=== PATIENT | female | born 1990 | race Caucasian/White ===

== ENCOUNTER 2020-04-24 16:29 | Inpatient (IN) | payer OTHER ==
[~2020-04-24] VITALS: Ht 167.6 cm; Wt 64.1 kg
--- NOTE | 2020-04-24 19:57 | NUR ---
HANDOFF REPORT RECEIVED FROM BLASTING ENTRY SPECIALIST SARWAT. pt TO GO TO SURGERY FROM ER.
--- NOTE | 2020-04-24 22:48 | NUR ---
04/24/208 Almodovar,Maral Weber 213: PATIENT AWAKENING. ORAL AIRWAY SPIT OUT. 2135: O2 MASK REMOVED. PATIENT ON ROOM AIR. PATIENT EMOTIONAL. ALSO C/O PAIN IN THROAT AND RIGHT BUTTOCK. 2139: IMAGING HERE TO COMPLETE CHEST XRAY FOR CENTRAL LINE PLACEMENT. 2144: CENTRAL LINE PLACEMENT CONFIRMED BY DR. DA SILVA.
--- NOTE | 2020-04-24 22:53 | NUR ---
4MG IV MORPHINE GIVEN FOR RIGHT BUTTOCK PAIN 08/20. CALL LIGHT IN REACH.
--- NOTE | 2020-04-24 23:07 | NUR ---
pt ARRIVES TO [facility] FLOOR AT 2210 VIA [employer] WITH [employer]. ABLE TO TRANSFER SELF TO HOSPITAL BED. ORIENTATION TO ROOM PROVIDED. PRIMARY RN SHU IN ROOM. pt EMOTIONAL DISCUSSING CURRENT AND FORMER DRUG USE. DENIES NEED FOR ASSISTANCE WITH CESSATION, STATES HAS BEEN IN INPATIENT REHAB AND OUTPATIENT TREATMENT "I'M JUST LAZY AND NEED TO DO IT AGAIN". CALL LIGHT IN REACH. IVF INFUSING CENTRAL LINE ORDERED.
--- NOTE | 2020-04-24 23:15 | NUR ---
PATIENT REQUESTED FOOD AFTER SURGEY. PROVIDED WITH ICE CREAM, PB&J SANDWICH, AND CHIPS.
--- NOTE | 2020-04-24 23:22 | NUR ---
PATIENT'S PAIN HAS INCREASED AND 4MG IV MS GIVEN AND 10MG OXYCODONE PO GIVEN. PATIENT'S DRESSING WAS CHANGED THE 1ST ONE HAD FALLEN OFF. CALL LIGHT IS IN REACH.
--- NOTE | 2020-04-25 00:09 | NUR ---
PATIENT CALLED TO USE BATHROOM. SBA TO BATHROOM. UA COLLECTED VIA CLEAN CATCH. BACK TO BED. FRESH GOWN PROVIDED. PATIENT WAS STEADY WHEN AMBULATING. UA SENT TO LAB. CALL LIGHT IN REACH. PATIENT DENIES ANY FURTHER NEEDS AT THIS TIME.
--- NOTE | 2020-04-25 01:03 | NUR ---
PATIENT UP TO THE BATHROOM AGAIN WITH DANILO MCDONNELL AND BACK TO BED. PATIENT'S PAIN 3/10 AT THIS TIME. CALL LIGHT IS IN REACH.
--- NOTE | 2020-04-25 01:03 | NUR ---
PATIENT CALLED LINING STUFFER SYSTEM TO USE BATHROOM. SBA TO BATHROOM. PATIENT HAS NO PROBLEM WALKING BY HERSELF TO BATHROOM. PULSE OX IV POLE PLUGGED IN WHEN PATIENT RETURENED TO BED. PATIENT COMPLAINS OF DRIN FELLING LIKE IT IS "POKING" HER. KIEL IRELAND NOTIFIED. CALL LIGHT IN REACH. PATIENT DENIES ANY FURTHER NEEDS AT THIS TIME.
--- NOTE | 2020-04-25 01:27 | NUR ---
PATIENT REMAINS AWAKE AND COMFORTABLE AT THIS TIME, WATHING TV, CALL LIGHT IS IN REACH.
--- NOTE | 2020-04-25 03:27 | NUR ---
PATIENT RESTING QUIETLY, EYES CLOSED, RESPIRATIONS REGULAR AND EVEN, SATS 94% AND HR=92, CALL LIGHT IN REACH.
--- NOTE | 2020-04-25 05:10 | NUR ---
PATIENT HAS GOTTEN A TOTAL OF 8MG IV MS AND 10MG PO OXYCODONE THIS SHIFT TO CONTROL HER PAIN, PATIENT RESTED WELL AFTER THESE MEDS AND CONTINUES TO BE COMFORTABLE AT THIS TIME. CENTRAL PORTS FLUSHED WITH 20MLS/NS AND 5MLS/HEP LOCK SOLUTION. RIGHT GLUTEAL DRESSING HAD TO BE CHANGED ONCE RIGHT AFTER ARRIVING TO THE FLOOR IT CAME OFF, SANGUINOUS DRAINAGE NOTED. PATIENT RESTING AT THIS TIME, BLOOD PRESSURE REMAINS A LITTLE SOFT, CALL LIGHT IS IN REACH.
--- NOTE | 2020-04-25 06:35 | NUR ---
PATIENT CALLED TO USE THE RESTROOM. SBA. CHANGED BLANKETS AND PILLOW CASE DUE TO BLOOD STAINS. WHITE CHUCKS ON. WARM BLANKET PROVIDED.
--- NOTE | 2020-04-25 07:10 | NUR ---
REPORT RECEIVED FROM KIEL IRELAND. PT RESTING IN BED ON LEFT SIDE WITH EYES CLOSED. PT RESPONDS TO VOICE. PT DENIES PAIN AND NAUSEA. O2 SATURATION AT 97% WITH HEART RATE OF 82. PT DENIES REQEUSTS OR COMPLAINTS AT THIS TIME. CALL LIGHT WITHIN REACH.
--- NOTE | 2020-04-25 09:18 | NUR ---
PATIENT RESTING WITH EYES CLOSED. RESPONDS TO VOICE. VITALS AND I&OS CHARTED. BREAKFAST AT BEDSIDE, PATIENT AWARE. CALL LIGHT IN REACH, MO OTHER NEEDS AT THIS TIME,
--- NOTE | 2020-04-25 09:45 | NUR ---
MORNING ASSESSMENT AND MEDICATION DUE. PT RESTING ON LEFT SIDE. PT RESPONDS TO VOICE. PT REPORTS 4/10 BURNING PAIN IN RIGHT GLUTEAL AREA. PT REQUESTS PAIN MEDICATION (SEE MAR FOR MEDICATION GIVEN. IJ LINE ASSESSED, WNL, BRISK BLOOD REUTRN NOTED IN ALL THREE LUMENS. WHITE AND BLUE LUMENS FLUSHED AND HEPARIN LOCKED PERPROTOCOL WITH ALCOHOL CAPS APPLIED. BROWN LINE INFUSING IV ABX SEE MAR). DRESSING AROUND IJ LINE NOT INTACT. STERILE DRESSING CHANGE DONE PER PROTOCOL. ASSESSMENT DONE. DRESSING TO RIGHT GULTEAL SURGICAL SITE SATURATED IN SERIOUSANGUINOUS RED DRAINAGE. ABD CHANGED. WOUND BED AND CONSITON NOT ASSESSED RELATED TO SURGICAL DRESSING IN PLACE. SCD'S NOT IN PLACE, PT REFUSES, EDUCATION DONE. PT CONTINUES TO DECLINE. IV TO RIGHT UPPER SHOULDER REMOVED, NOT NEEDED, DC'D WNL. GAUZE AND TAP APPLIED. PT CALM AND COOPERATIVE WITH CARES. STAND BY ASSIST UP TO VOID. PT VOIDS 600 CLEAR YELLOW URINE. STAND BY ASSIST. RETURN TO RESTING IN BED. NO ADDITIONAL REQUESTS OR COMPLAINTS. CALL LIGHT WITHIN REACH. BED RAILS UP.
--- NOTE | 2020-04-25 10:49 | NUR ---
THIS RN TO ROOM TO CHECK ON PT. PT RESTING ON LEFT SIDE IN BED WITH EYES CLOSED. PT RESPONDS TO VOICE AND REPORTS PAIN AT 3/10, PT DENIES NEED FOR ADDITIONAL PAIN MEDICATION. PT ENCORUAGED TO SPEND TIME UP TO CHAIR. PT DECLINES AT THIS TIME. PT CONTINUES TO BE MIDLY DIAPHROETIC. IV ABX INFUSION COMPLETE. IV FLUIDS RESUMED (SEE EMAR). NO ADDITIONAL REQUESTS OR COMPLAINTS. CALL LIGHT WITHIN REACH. BED RAILS UP.
--- NOTE | 2020-04-25 10:57 | NUR ---
IN TO CHAECK ON PATIENT, STILL RESTING WITH EYES CLOSED. ROUSED TO VOICE. WOULD LIKE TO KEEP BREAKFAST AT BEDSIDE. FRESH ICE WATER PROVIDED. CALL LIGHT IN REACH
--- NOTE | 2020-04-25 12:50 | NUR ---
THIS RN TO ROOM WITH DR. DA SILVA FOR DRESSING CHANGE AND ROUNDS. MD REMOVES DRESSING AND PACKED GAUZE IN WOUND. NEW SUPRFICIAL GAUZE AND ABD PAD PLACED PER MD ORDER. PT REPORTS 5-6/10 PAIN AT SURGICAL SITE, DR. DA SILVA STATES OK TO GIVE PAIN MEDICATION EARLY. PT REPORTS HER BOYFRIEND IS COMING NOW. CHARGE NURSE UPDATED REGARDING WATCHING FOR ITEMS BROUGHT AND GIVEN TO PT. PT VERBALIZES UNDERSTANDING THAT IT IS VERY DANGEROUS TO USE IV DRUGS. NO ADDITIONAL REQUESTS OR COMPLAINTS. CALL LIGHT BringrsIN REACH. BED RAILS UP.
--- NOTE | 2020-04-25 13:07 | OR ---
[facility] [address] [place], [place] [address] Signed DATE OF OPERATION: 04/24/2020 SURGEON: Erinn Da Silva MD PREOPERATIVE DIAGNOSES: 1. Giant right gluteal abscess. 2. Intravenous drug use heroin. 3. Poor peripheral access. POSTOPERATIVE DIAGNOSES: 1. Giant right gluteal abscess. 2. Intravenous drug use heroin. 3. Poor peripheral access. PROCEDURES: 1. Exam under anesthesia. 2. Right ultrasound-guided internal jugular central venous catheter placement. 3. Right giant gluteal abscess drainage with debridement. 4. Placement of yellow vessel loop drains x2. ANESTHESIA: General LMA Jeff Garcia CRNA INDICATIONS: This 29-year-old white woman lives in [place] and presented to the emergency room where she was evaluated by Dr. Venegas for marked cellulitis of the right gluteal area and obvious large abscess. She has associated right inguinal adenopathy. The patient has a habit of intramuscular and subcutaneous injection of heroin on a routine basis as most of her peripheral IV sites have withered away. She has been given antibiotic of ceftriaxone and vancomycin, some amount of fluid through a tenuous IV in the right deltoid area and is now to undergo placement of central venous catheter as well as drainage of a right gluteal abscess. The risks of bleeding, infection, recurrence, and other unforeseen complications was reviewed and understand by the patient and her boyfriend. FINDINGS: Ultrasound guidance allowed for easy placement of right internal jugular venous catheter. Good function was noted. The deltoid IV was removed on that basis. As regards to the right gluteal abscess, she had extensive cellulitis and a very large Electronically Signed By: ERINN DA SILVA MD 04/25/20 1307 PATIENT NAME: MILENA SINGH OPERATIVE REPORT DATE OF : 88 REPORT #: [id number] PHYSICIAN: ERINN DA SILVA MD PCP: NO PRIMARY CARE PHYSICIAN REPORT IS CONFIDENTIAL AND NOT TO BE RELEASED WITHOUT AUTHORIZATION [facility] [address] [place], [place] [address] Signed abscess cavity at least as large as my fully opened hand and some necrotic debris within the cavity. Two counter incisions were made allowing for placement of yellow vessel loop drains. Complete drainage and debridement of the abscess cavity was undertaken as well as irrigation. There were no complications. DESCRIPTION OF PROCEDURE: The patient was brought to the operating room and given a general LMA type anesthetic with use of the small peripheral deltoid vein IV and the usual measures. The right neck and upper torso were prepared with a chlorhexidine solution and draped sterilely. Below the anterior crossing vein of the right sternocleidomastoid muscle, ultrasound probe was applied to the neck showing good demonstration of the internal jugular vein as well as carotid anatomy. Under direct visualization, using the Seldinger technique, the right internal jugular vein was easily accessed showing dark nonpulsatile blood. Notably, the usual protocol including sterile gloves, gown, and mask and so forth were avoided during the course of the procedure. Access to the vein showed dark nonpulsatile blood and a flexible J-wire was passed down the needle. The needle was removed. A photograph was taken during the course of finding the jugular vein with the ultrasound. The site was incised with an #11 blade. Dilated with enclosed blue dilator and a previously inspected and irrigated Arrow Blue Tip triple-lumen catheter passed over the wire. The wire was removed and aspiration on the distal port showed dark nonpulsatile blood. was applied to that site and flushed. The catheter was withdrawn several cm given her body habitus and secured to the skin with the enclosed collar device and suture. An anti-infective disk was applied as was an OpSite dressing. The deltoid access was removed and the IV fluids to the central venous catheter. The patient was then placed in the lateral position left side down. Photographs were taken. The right buttock and so forth was prepared with a chlorhexidine solution and draped sterilely. An area of fluctuance in the mid to posterior aspect of the large infective process was incised with an #11 blade and egress of copious amounts of brown and foul appearing purulent material exuded under pressure from the site. Copious amounts were noted to drain. Ultimately, a tonsil clamp was placed in the space of the abscess cavity and loculations broken down and apparently the necrotic fatty material removed. A counter incision was made more anteriorly and the yellow vessel loop passed through this site and tied in a loop. Inferiorly, there was a similar space. This was debrided with the clamp and a counter incision made there and another yellow vessel loop passed and tied. Copious irrigation of the cavity was then undertaken with bulb printing press operator apprentice using sterile saline solution. Plain gauze was packed into the wound site and each site to help oozing. An ABD pad was applied as was tape. She was returned to the supine position ultimately extubated and transferred to the recovery room in good condition. BLOOD LOSS: Electronically Signed By: ERINN DA SILVA MD 04/25/20 1307 PATIENT NAME: MILENA SINGH OPERATIVE REPORT DATE OF : 88 REPORT #: [id number] PHYSICIAN: ERINN DA SILVA MD PCP: NO PRIMARY CARE PHYSICIAN REPORT IS CONFIDENTIAL AND NOT TO BE RELEASED WITHOUT AUTHORIZATION [address] [place] [address] Signed Minimal. COMPLICATIONS: None. MD JOHNNY Chand/STEPHEN /[id number] cc: Tyshawn Venegas MD Copies: TYSHAWN VENEGAS MD ~ Electronically Signed By: ERINN DA SILVA MD 04/25/20 1307 PATIENT NAME: MILENA SINGH OPERATIVE REPORT DATE OF : 88 REPORT #: [id number] PHYSICIAN: ERINN DA SILVA MD PCP: NO PRIMARY CARE PHYSICIAN REPORT IS CONFIDENTIAL AND NOT TO BE RELEASED WITHOUT AUTHORIZATION
--- NOTE | 2020-04-25 13:07 | HP ---
[facility] [address] [place], [place] [address] Signed ADMISSION DATE: 04/24/2020 REASON FOR ADMISSION: Right gluteal cellulitis and abscess related to illicit drug use. HISTORY OF PRESENT ILLNESS: This 29-year-old white woman is accompanied by her boyfriend. She lives in [place]. She has a longstanding history of IV drug abuse including heroin. She has had cellulitis and abscess drainages elsewhere in the past related to injection and infections. She recently has been using subcutaneous or intramuscular heroin as she has no more available veins. She lives in [place] and travel to [place] to be evaluated as she "does not like the doctors in [place]." I suspect there has been a fair history of similar issues in the [place] area. She has had no fever or chills, but does have a fair amount of tenderness in the right gluteal area. She was evaluated thoroughly by Dr. Olson and noted to have very poor peripheral access. Notably, however, a right deltoid vein was identified and successfully cannulated for peripheral IV and antibiotic administration has begun. Lab studies have not yet been obtained. The patient last ate a bagel approximately 2-1/2 hours ago. A COVID test is pending to be obtained (rapid test). The patient has had no fever or chills that she is aware of, only discomfort. PAST MEDICAL HISTORY: Dominantly related to hepatitis C. No doubt related to IV drug abuse in the past. SOCIAL HISTORY: She lives in [place]. Her sister lives near her in another apartment there. She is accompanied by her boyfriend. PHYSICAL EXAMINATION: A thin white woman, who has stigmata of chronic heroin abuse including peripheral edema of lower extremities and arms. She is alert and oriented and not obtunded in any way. Trachea is midline. Chest shows normal respiratory excursion. An IV is infusing in the right deltoid area. Examination of her right gluteus area shows marked erythema and swelling and fluctuance in the central portion. There is no sign of spontaneous drainage of abscess at this time. She does have impressive right-sided inguinal adenopathy. Tenderness is noted there as well. The lower extremities show edema. Electronically Signed By: ERINN DA SILVA MD 04/25/20 1307 PATIENT NAME: MILENA SINGH HISTORY AND PHYSICAL DATE OF : 88 REPORT #: [id number] PHYSICIAN: ERINN DA SILVA MD PCP: NO PRIMARY CARE PHYSICIAN REPORT IS CONFIDENTIAL AND NOT TO BE RELEASED WITHOUT AUTHORIZATION [facility] [address] [place], [place] [address] Signed LAB STUDIES: Have not yet been obtained as previously noted. ASSESSMENT: The patient has cellulitis and an abscess of her right gluteal area for which incision and drainage will be necessary as well as IV antibiotics. More likely than not, she will need to stay in the hospital for a day or two until the cellulitic process is resolving. Oral antibiotics thereafter would likely be necessary. She may additionally require central venous access for reliable access for IV medications. For now, the peripheral IV is adequate. I discussed with her the risks of bleeding, infection, cosmetic deformity, and other unforeseen complications related to incision and drainage. She understands and wished to proceed. We will be on a timeline of somewhat dependent on the COVID-19 rapid test per hospital policy. She will maintain n.p.o. status until the time of operation. Erinn Da Silva MD JM/MODL /[id number] cc: Tyshawn Olson MD Copies: TYSHAWN OLSON MD ~ Electronically Signed By: ERINN DA SILVA MD 04/25/20 1307 PATIENT NAME: MILENA SINGH HISTORY AND PHYSICAL DATE OF : 88 REPORT #: [id number] PHYSICIAN: ERINN DA SILVA MD PCP: NO PRIMARY CARE PHYSICIAN REPORT IS CONFIDENTIAL AND NOT TO BE RELEASED WITHOUT AUTHORIZATION
--- NOTE | 2020-04-25 13:15 | NUR ---
IV ABX DUE. PT UP TO RESTROOM INDEPENDANTLY. PT STEADY ON FEET. PT VOIDS YELLOW URINE WITHOUT ISSUE. PTS BOYFRIEND AT BEDSIDE. PT REPORTS "I FEEL SO MUCH BETTER NOW." PT REOPRTS PAIN IS NOW 0/10. ORAL ABX GIVEN. O2 AT 98% ON ROOM AIR. HR = 107. PT DENIES ADDIITONAL REQUESTS OR COMPLAINTS. EDUCATION DONE WITH PT AND BOYFRIEND REGARDING AVOIDING TAKING ADDITIONAL DRUGS/MEDICAITONS WHILE AT THE HOSPITAL. PT AND BOYFRIEND VERBALIZE UNDERSTANDING. NO ADDITIONAL REQUESTS OR COMPLAINTS. CALL LIGHT WITHIN REACH.
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
--- NOTE | 2020-04-25 14:35 | NUR ---
PT RESTING IN BED, SOMEWHAT ALERT. PT SEEMED RESTLESS, WOULD CLOSE EYES TO ANSWER A QUESTION. MENTIONED PAIN IS 3-4. GAVE BLESSING AND LEFT G.POST.
--- NOTE | 2020-04-25 14:50 | NUR ---
Spoke with Kirill. She lives in [facility] in an apartment. Boyfriend stays frequently. She requests assistance getting back to [facility] for Suboxone. Called and spoke with the suboxone clinic an they request pt visit them on discharge. They will assist patient to find a pcp and complete paperwork. Pt plans on dc to home when shari brower by
--- NOTE | 2020-04-25 14:56 | NUR ---
AFTERNOON ASSESSMENT DUE. PT SITTING ON EDGE OF BED EATING SNACKS (MUFFIN, AND CHOCOLATE). PT REPORTS 0/10 PAIN STATING "IT DOESN'T REALLY BOTHER ME, JUST A LITTLE WHEN I MOVE." CENTRAL LINE WNL, DRESSING INTACT, BROWN LUMEN INFUSING IV FLUIDS. WHITE AND BLUE LUMENS HEPARIN LOCKED WITH ALCOHOL CAPS APPLIED. PT DENIES FEELINGS OF WITHDRAWLS. NO TREMORS NOTED. REDNESS TO HANDS/FINGERS NOTED. PT ATRIBUTES THIS REDNESS TO "MY HEP C." DRESSING PREVIOUSLY PLACED WITH MD REMAINS C/D/I WITH ONLY 1 SMALL PINPOINT AMOUNT OF DRAINAGED NOTED ON DRESSING. DINNER ORDER PLACED PT REQUESTS ENSURE, ENSURE PROVIDED. NO ADDITONAL REQUESTS OR COMPLAINTS AT THIS TIME. PT STATES HER BOYFRIEND WILL BE BACK SOON. CALL LIGHT WITHIN REACH.
--- NOTE | 2020-04-25 16:12 | NUR ---
CHARGE NURSE INFORMS THIS RN THAT PT HAS CALLED AND WOULD LIKE TO LEAVE THE HOSPITAL. THIS RN TO ROOM. PT PACING IN ROOM. PT STATES "I DON'T FEEL SICK AT ALL AND I WANT TO LEAVE. I NEED TO SMOKE AND I NEED MY MEDS." DISCUSSION HELD WITH PT AND PT AGREES TO STAY AND TAKE SOME MORPHINE AND RECEIVE A NICOTENE PATCH. DR. DA SILVA CALLED AND UPDATED. ORDERS FOR NICOTENE PATCH GIVEN. MORPHINE GIVEN, PT REPORTS 3/10 PAIN IN RIGHT GLUTEAL AREA. NICOTENE PATCH APPLIED TO LEFT SHOULDER. PT STATES "I FEEL BETTER NOW, SORRY I FREAKED OUT." ICE WATER REFILLED. PT SITTING ON EDGE OF BED WATCHING TV. NO ADDITONAL REQUESTS OR COMPLAINTS. CALL LIGHT WITHIN REACH.
--- NOTE | 2020-04-25 17:12 | NUR ---
THIS RN TO ROOM TO CHECK ON PT. PT RESTING IN BED. NO SIGNS OF AGITATION. PT REPORTS FEELING "MUCH BETTER." PT REPORTS "NO PAIN" AND DENIES FEELING AGITATED. PT DENIES REQUESTS OR COMPLAINTS AT THIS TIME. CALL LIGHT WITHIN REACH. BED RAILS UP.
--- NOTE | 2020-04-25 17:26 | NUR ---
PATIENT AWAKE AT SIDE OF BED WATCHING TV. VITALS AND I&OS CHARTED. 1 BOTTLE OF ENSURE DRANK, 1 OTHER BOTTLE AND DINNER ON BEDSIDE TABLE. PATIENT IN GOOD SPIRITS, TALKATIVE. CALL LIGHT IN REACH, DENIES ANY OTHER NEEDS
--- NOTE | 2020-04-25 17:30 | NUR ---
PT POST OP DAY 1 FOR I&D OF RIGHT GLUTEAL ABCESS. PT INDEPENDANT IN ROOM AND STEADY ON FEET. PT TOLERATING REGULAR DIET WITHOUT NAUSEA AND WITH GOOD APPITITE. PACKING REMOVED BY MD NEW DRESSING CHANGE ORDERS PLACED. MINIMAL RED DRAINAGE NOTED THIS SHIFT. PT AGITATED THIS SHIFT WANTING TO GO HOME RELATED TO DRUG AND NICOTENE WITHDRAWLS. MEDICATIONS GIVEN. NICOTENE PATCH ADDED. IJ TRIPLE LUMEN, BLUE AND WHITE LUMES HEPARIN LOCKED WITH BROWN LUMEN INFUSING IV FLUIDS. PTS SIGNIFICANT OTHER TO BEDSIDE THIS SHIFT. PT VOIDING QUANTITY SUFFICIENT. PT USES CALL LIGHT APPROPRATLY.
--- NOTE | 2020-04-25 18:38 | NUR ---
THIS RN TO ROOM TO CHECK ON PT. PT FINISHING DINNER. PT ENCOURAGED TO SHOWER, PT AGREES THAT SHE IS READY FOR SHOWER. PT REPORTS 0/10 PAIN STATING "IT'S NOT BOTHERING ME." IJ (BROWN LUMEN) SALINE LOCKED, ALCOHOL CAP APPLIED, LINE COVERD FOR SHOWER. ABD PAD AND GAUZE REMOVED FOR SHOWER. PT INDEPENDANT IN SHOWER. NO ADDITIONAL REQUESTS OR COMPLAINTS. PT DEMONSTRATES USE OF CALL LIGHT.
--- NOTE | 2020-04-25 19:14 | NUR ---
PT CALL LIGHT ON. PT FINISHED WITH SHOWER. NEW GAUZE AND ABD PAD APPLIED TO GLUTEAL WOUND. IJ LINE ASSESED, BRISK BLOOD REUTRN NOTED, IV FLUIDS RESTARTED THROUGH BROWN LUMEN OF IJ LINE. PT SHAKY AND AGITATED. IV PAIN MEDICATIONS GIVEN (SEE MAR). PT REPORTS 2/10 PAIN. STAND BY ASSIST BACK TO BED. PT RESTING IN BED WATCHING TV. NO ADDITIONAL REQUESTS OR COMPLAINTS. REPORT GIVEN TO KIEL IRELAND. CALL LIGHT WITHIN REACH.
--- NOTE | 2020-04-25 19:57 | NUR ---
PATIENT LAYING IN BED WATCHING TV, CALL LIGHT IN REACH, NO NEEDS AT THIS TIME.
--- NOTE | 2020-04-25 20:57 | NUR ---
PATIENT HAVING 3/10 RIGHT BUTTOCK PAIN AND PATIENT FEELING ANXIOUS. 10MG PO OXCODONE GIVEN. WATER REFILLED, CALL LIGHT IN REACH, NO FURTHER NEEDS AT THIS TIME.
--- NOTE | 2020-04-25 23:25 | NUR ---
PATIENT SITTING IN BED WATCHING HER TABLET, PATIENT'S PAIN 0/10 AT THIS TIME, PATIENT HAS NO CURRENT REQUESTS, CALL LIGHT IN REACH.
--- NOTE | 2020-04-25 23:41 | NUR ---
CALL LIGHT ON. pt SITTING IN BED. NEW BAG OF IV FLUIDS HUNG. pt CHANGING DRESSING ON RIGHT BUTTOCKS. NO REQUESTS AT THIS TIME. ALL SUPPLIES IN ROOM. LOOP DRAINS VISUALIZED. SMALL AMOUNT OF SS DRAINAGE NOTED. CALL LIGHT WITHIN REACH.
--- NOTE | 2020-04-26 01:49 | NUR ---
PATIENT CONTINUES SITTING IN BED WATCHING HER TABLET,BUT IS GETTING ANXIOUS AND TENSE, PAIN IS BACK TO 3/10 AND 6MG IV MORPHINE GIVEN. NO OTHER NEEDS AT THIS TIME. CALL LIGHT IN REACH.
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
--- NOTE | 2020-04-26 03:55 | NUR ---
PATIENT REMAINS TO SIT IN BED WATCHING HER TABLET, PATIENT'S PAIN IS 1/10 AT THIS TIME, AND PATIENT HAS NO OTHER NEEDS, CALL LIGHT IN REACH.
--- NOTE | 2020-04-26 06:00 | NUR ---
PATIENT HAS DONE WELL TONIGHT ALTHOUGH SHE HAS NOT SLEPT MUCH, SHE SAYS SHE IS A NIGHT OWL. PATIENT GOT 2 DOSES OF 4MG IV MORPHINE AND 1 DOSE OF 10MG OXYCONTIN FOR THE SHIFT TO CONTROL PAIN AND WITHDRAWL SYMPTOMS. PATIENT HAS FINALLY GONE TO SLEEP. SHE CHANGED HER OWN DRESSING LAST NIGHT. PATIENT IS RESTING CALMLY WITH EQUAL AND EVEN RESPIRATIONS, EYES CLOSED, CALL LIGHT IN REACH.
--- NOTE | 2020-04-26 06:39 | NUR ---
PATIENT WAS ASLEEP FOR THE FIRST TIME I'VE SEEN WHEN I ENTERED ROOM FOR VITALS AND I&O. CALL LIGHT IN ROOM. NO FUTHER NEEDS AT THIS TIME.
--- NOTE | 2020-04-26 07:11 | NUR ---
REPORT RECEIVED FROM KIEL IRELAND. PT RESTING IN BED WITH EYES CLOSED, RESPIRATIONS EVEN AND UNLABORED. HEAD OF BED ELEVATED TO 30 DEGREES. BED RAILS UP. CALL LIGHT WITHIN REACH. PT ALLOWED TO REST.
--- NOTE | 2020-04-26 08:40 | NUR ---
MORNING ASSESSMENT AND MEDICATION DUE. PT RESTING IN BED ON BACK WITH HEAD OF BED ELEVATED TO 30 DEGREES. PT AGITATED, SCOWLING, TREMORS AND DIAPHROESIS NOTED. HEART RATE OF 97 ADN O2 SATURATION OF 97% ON ROOM AIR. PT REPORTS SHE DIDN'S SLEEP MUCH LAST NIGHT BUT ALSO STATES SHE TYPICALLY STAYS UP REALLY LATE. PT REPORTS 3/10 PAIN AT RIGHT GLUTEAL SITE AND REQUESTS PAIN MEDICATION (SEE MAR FOR MEDICATIO GIVEN). CENTRAL IJ LINE ASSESSED. CONTINIOUS IV FLUIDS CONTINUE THROUGH BROWN LUMEN, BRISK BLOOD RETURN NOTED WITH ASSESSMENT. WHITE AND BLUE LUMENS DEMONSTRATE BRISK BLOOD RETURN, LUMENS FLUSHED AND HEAPRIN LOCKED PER PROTOCOL. ALCOHOL CAPS APPLIED. ASSESSMENT DONE. GENERALIZED EDEMA NOTED TO BILATERAL HANDS AND ARMS. +1 PITTING EDEMA NOTED TO BILATERAL LOWER LEGS. DRESSING REMOVED FROM RIGHT GLUTEAL WOUND. DRESSING 75% SATURATED WITH RED AND YELLOW SERIOUS DRAINAGE. 3 1CM INCISIONS REMAIN WITH YELLOW LOOP DRAINS IN PLACE. TISSURE SURROUNDING WOUND IS FIRM TO TOUCH FOR APROXIMATLY 5 CENTIMETERS. PT REPORTS "I CHANGED MY OWN DRESSING LAST NIGHT." NEW GAUZE AND ABD PAD APPLIED SECURED WITH SILK TAPE. AFTER PAIN MEDICATIO ADMINISTRATION PT CALMS. TREMORS AND DIARPHORESIS NO LONGER NOTED. PT RESTING ON LEFT SIDE WITH EYES CLOSED HEAD OF BED ELEVATED TO 30 DEGREES. PT DENIES ADDITIONAL REQUESTS OR COMPLAINTS. CALL LIGHT WITHIN REACH. BED RAILS UP.
--- NOTE | 2020-04-26 09:03 | NUR ---
MED REC COMPLETE
--- NOTE | 2020-04-26 09:31 | NUR ---
THIS RN TO ROOM TO CHECK ON PT. PT RESTING IN BED ON LEFT SIDE. PT AWAKE AND REPORTS 1/10 PAIN AT SURGICAL SITE, PT DENIES NEED FOR ADDITIONAL MEDICATION. PT NOTED TO BE CALM AND COOPERATIVE. NO TREMMORS OR DIAPHORESIS NOTED. PT DENIES ADDITIONAL NEEDS AT THIS TIME. CALL LIGHT WITHIN REACH. BED RAILS UP.
[2020-04-26] MEDS ORDERED: IBUPROFEN600 MG PO (10:32)
[2020-04-26] MEDS ORDERED: NICOTINE1 EAC2 TD (10:32)
[2020-04-26] MEDS ORDERED: ACETAMINOPHEN500 MG PO (10:32)
[2020-04-26] MEDS ORDERED: DOXYCYCLINE HY100 MG PO (10:32)
[2020-04-26] MEDS ORDERED: OXYCODONE HCL5 MG PO (10:32)
--- NOTE | 2020-04-26 10:46 | NUR ---
PT READY FOR DISCHARGE. PT UP TO DRESS SELF WITH STAND BY ASSIST. PT STEADY ON FEET. PT REPORTS SURGICAL SITE PAIN AT 1/10 AND DENIES NEED FOR ADDITIONAL PAIN MEDCIAITON. PT DENIES NAUSEA. EDUCATION DONE WITH PT REGARDING CHANGING ABD PAD AND GAUZE PRN. PT DEMONSTRATES UNDERSTANDING. ABD PADS, SILK TAPE, AND GAUZE PROVIDED. IJ CNETRIAL LINE DC'D PER PROTOCOL. TIP INTACT. OCCLUSIVE DRESSING APPLIED. DIME SIZE AMOUNT OF BLEEDING NOTED ON DRESSING. PT UP TO USE RESTROOM, INDEPENDANTLY, NO ASSISTANCE NEEDED. PHARAMCIST TO BEDSIDE TO REVIEW MEDICATIONS WITH PT. PT VERBALIZES UNDERSTANDING OF MEDICATION AND STATES HER QUESTIONS HAVE BEEN ANSWERED. DISCHARGE INSTRUCTIONS REVIEWED WITH PT. PT VERBALIZES UNDERSTANDING OF INSTRUCTIONS, DRESSING CHANGES, MEDICATIONS, AND FOLLOW UP APPOINTMENTS. PT TRANSFERES SELF TO WHEELCHAIR AND WHEELED FROM MED/SURG. NO ADDIITONAL CONCERNS OR REQEUSTS.
--- NOTE | 2020-04-26 11:07 | NUR ---
WHEN I WENT IN THE MORING PATIENT WAS SLEEPING.
--- NOTE | 2020-04-26 18:26 | DS ---
[facility] [address], [place] [address] Signed ADMISSION DATE: 04/24/2020 DISCHARGE DATE: 04/26/2020 REASON FOR ADMISSION: This 29-year-old white woman has a chronic heroin addict and has been so since age 19 (10 years). She lives in [facility]. She had a long history of IV drug abuse, most dominantly including heroin, but ran out of veins quite some time ago and has been doing subcutaneous or intramuscular injections. She presented to the Emergency Room in [place] with a very large right gluteal abscess and cellulitis and is admitted for further evaluation and care. PAST MEDICAL HISTORY: Does include hepatitis C. The patient has been on methadone maintenance therapy in the past, but due to noncompliance, was discharged from that program. SOCIAL HISTORY: She lives in [place]. She has a sister lives nearby there. She has a boyfriend. PHYSICAL EXAMINATION: GENERAL: A thin and cachectic white woman, who has the stigmata of chronic heroin abuse including peripheral edema and erythema of lower extremities and upper extremities. Alert and oriented and not obtunded. NECK: Trachea is midline. CHEST: Clear. EXTREMITIES: A minute IV was placed in the right deltoid area allowing for infusion of fluid initially. The right gluteus shows marked erythema and swelling and fluctuance in the central portion. There is marked inguinal adenopathy on the right side. She has peripheral edema bilaterally. HOSPITAL COURSE: She was initially treated with vancomycin and ceftriaxone intravenously administered and went directly to operation from the emergency room. The right internal jugular central venous catheter was placed in the lateral position with an LMA type anesthetic. Incision and drainage of a very large and extensive gluteal abscess was undertaken. Counter incisions were made allowing for placement of yellow vessel loop drains. Gram stain and cultures were obtained. Dressing was applied. She was maintained with intravenous antibiotics overnight and transitioned to oral doxycycline noting the Gram stain showing gram-positive cocci in copious amounts. There Electronically Signed By: ERINN DA SILVA MD 04/26/20 1826 PATIENT NAME: MILENA SINGH DISCHARGE SUMMARY DATE OF : [birth year] REPORT #: [id number] PHYSICIAN: ERINN DA SILVA MD PCP: NO PRIMARY CARE PHYSICIAN REPORT IS CONFIDENTIAL AND NOT TO BE RELEASED WITHOUT AUTHORIZATION [facility] [address] [place] [id number] Signed is no evidence of gram-negative rods. The culture is still pending, but it is suspicious likely from MRSA. She was given opiate and non-opiate type medications for postoperative pain and for avoidance of narcotic withdrawal syndrome. brand planner has made arrangements for her to see a Suboxone Clinic that is located directly adjacent to her in [place]. This was done in coordination with Dr. Ra Oliva. As regard to the wound, she will soak the gluteal area in bathtub or in the shower on a daily basis and leave drains as it is. She will see us back in two weeks and remove the drains in the office setting. She will be discharged home with doxycycline antibiotic. DISCHARGE MEDICATIONS: Included: 1. Doxycycline 100 mg p.o. b.i.d., #20. 2. Nicotine patch 21 mg transdermal daily, #20, refill 2. 3. Ibuprofen 600 mg p.o. q.6 hours as needed for pain, #30. 4. Tylenol 500 mg two tablets p.o. q.6 hours as needed for pain (#60). Additionally, she will re-establish a Suboxone Clinic in [place] as previously noted. DISCHARGE DIAGNOSES: 1. Large gluteal abscess and secondary cellulitis with right inguinal adenopathy related to illicit subcutaneous injection of heroin. 2. Long-standing heroin addiction with variable degrees of compliance for Methadone Clinic. 3. Hepatitis C. MD JOHNNY Chand/MODL /[id number] cc: MD Ra Jovel MD Electronically Signed By: ERINN DA SILVA MD 04/26/20 1826 PATIENT NAME: MILENA SINGH DISCHARGE SUMMARY DATE OF : [birth year] REPORT #: [id number] PHYSICIAN: ERINN DA SILVA MD PCP: NO PRIMARY CARE PHYSICIAN REPORT IS CONFIDENTIAL AND NOT TO BE RELEASED WITHOUT AUTHORIZATION [facility] [address] [place] [address] Signed Chris Gonzalez MD Copies: DICK OLSON MD, DANIEL L MD RICE, JOEL D MD ~ Electronically Signed By: ERINN DA SILVA MD 04/26/20 1826 PATIENT NAME: MILENA SINGH DISCHARGE SUMMARY DATE OF : [birth year] REPORT #: [id number] PHYSICIAN: ERINN DA SILVA MD PCP: NO PRIMARY CARE PHYSICIAN REPORT IS CONFIDENTIAL AND NOT TO BE RELEASED WITHOUT AUTHORIZATION
== END 2020-04-26 11:25 | disposition home or self-care (01) | DRG 580 ==
LOC: ED 16:29 → MS 18:35
PROVIDERS: ADMIT Surgery; ATTEND Surgery
PROC: 02HV33Z Insertion of Infusion Device into Superior Vena Cava, Percutaneous Approach (ICD-10-PCS; 2020-04-24)
PROC: 0J990ZZ Drainage of Buttock Subcutaneous Tissue and Fascia, Open Approach (ICD-10-PCS; principal; 2020-04-24 20:21)
DX: L02.31 Cutaneous abscess of buttock (principal); R64 Cachexia; F11.20 Opioid dependence, uncomplicated; Z20.822 Contact with and (suspected) exposure to COVID-19; L03.317 Cellulitis of buttock; R59.0 Localized enlarged lymph nodes; F17.200 Nicotine dependence, unspecified, uncomplicated; B19.20 Unspecified viral hepatitis C without hepatic coma
CPT/HCPCS: 00300; 71045; 80053; 81001; 83605; 84703; 85025; 94762; 96365; 96375; 99284-25; 99406; J0696; J1100; J1170; J1885; J2001; J2270; J2370; J2405; J2704; J3010; J3370; J7060; J7121; U0003